=== PATIENT | female | born 1965 | race Caucasian/White ===

== ENCOUNTER 2020-08-30 21:08 | Observation (INO) | payer OTHER, SELFPAY ==
--- NOTE | ~2020-08-30 | CT_ITS ---
EXAMINATION: CT brain wo con INDICATION: Head injury COMPARISON: 09/27/2018 TECHNIQUE: Standard unenhanced head CT. The dose-length product (DLP) was 605.33 mGy-cm. The mA was a djusted according to patient size. Iterative reconstruction technique was employed. FINDINGS: There is no acute intraparenchymal hemorrhage. No evidence of mass lesion. No evidence of a cute infarction. There is mild periventricular and subcortical hypodensity probably related to small vessel ischemic disease. There is mild prominence of the sulci and ventricles related to cerebral atr ophy. Intracranial calcified cerebral atherosclerosis is noted. There are no extra-axial collections. There is no mass effect or midline shift. Changes in the globes are likely from ocular lens surgery. There is complete opacification of the visualized maxillary sinuses and partial opacification of th e ethmoidal air cells. The frontal sinuses are not pneumatized. IMPRESSION: 1. No acute intracranial abnormality. 2. Age related findings. Reviewed, dictated and finalized at location A. ANALYST
--- NOTE | ~2020-08-30 | XR_ITS ---
EXAMINATION: XR chest 1V portable INDICATION: Nausea and chest pain TECHNIQUE: Portable AP chest at 2301 hours COMPARISON: 09/27/2018 FINDINGS: The lungs are free of acute opacities. There is no pleural effusion or pneumothorax. The ca rdiomediastinal silhouette is normal. There is a partially imaged comminuted fracture of the proximal left humerus. Healed bilateral rib fractures are noted. IMPRESSION: 1. No acute cardiopulmonary abnormality. 2. Comminuted left proximal humerus fracture. Reviewed, dictated and finalized at location A. GE HAND
--- NOTE | ~2020-08-30 | XR_ITS ---
EXAMINATION: XR shoulder LT min 2V INDICATION: Left shoulder pain, initial encounter TECHNIQUE: Four views of the left shoulder are submitted. COMPARISON: None FINDINGS: There is a comminuted fracture involving the proximal shaft of the left humerus. The distal fracture fragment is overriding by approximately 1.5 cm. Glenohumeral and acromioclavicular alignmen t are normal. Soft tissue swelling surrounds the fracture. There are healed left rib fractures. IMPRESSION: 1. Comminuted fracture of the proximal shaft of the left humerus. Reviewed, dictated and finalized at location A. N RESOURCE ANALYST
--- NOTE | ~2020-08-30 | CT_ITS ---
EXAMINATION: CT cervical spine wo con DATE: 08/30/2020 21:46 INDICATION: Neck pain TECHNIQUE: Computed tomography (CT) of the cervical spine was performed without intravenous contrast. The dose-length product (DLP) was 107.81 mGy-cm. Automated exposure control and iterative reconstruc tion technique were employed. COMPARISON: 11/03/2009 FINDINGS: The vertebral body heights and alignment are normal. There is mild loss of intervertebral d isc space height throughout the cervical spine. No fracture is identified. The odontoid is intact. Sm all degenerative osteophytes project from the anterior endplates of multiple vertebral bodies. There is mild multilevel facet and uncovertebral joint osteoarthritis. IMPRESSION: 1. Mild cervical spondylosis without acute findings or significant interval change. Reviewed, dictated and finalized at location A. TENANCE SUPERVISOR MECHANICAL IMPRESSION: 1. Mild cervical spondylosis without acute findings or significant interval kacey nge.
[2020-08-30 21:09] VITALS: TEMP 36.7
--- NOTE | 2020-08-30 21:28 | ED.GENADULT ---
HPI - General Adult General Chief complaint: Alcohol Stated complaint: LEFT SHOULDER PAIN Time Seen by Provider: 08/30/20 21:11 Source: patient and old records reviewed Mode of arrival: ambulatory Limitations: no limitations History of Present Illness HPI narrative: Patient is a 54-year-old female who presents to emergency department for evaluation of left shoulder injury patient notes she was ambulating tripped and fell and injured the shoulder patient notes history of alcohol abuse. Patient presents for EMS noting left shoulder pain patient notes the pain is worse with any activity or manipulation of the shoulder. Patient on arrival with a GCS of 15 ANO x3. Patient denies other injuries or complaints. Patient has not taken anything for her symptoms. Pain is localized to the left shoulder. Patient notes that she likely fell while intoxicated this morning but does not recall the details of the incident Related Data Allergies Allergy/AdvReac Type Severity Reaction Status Date / Time strawberry AdvReac Intermediate RASH Verified 08/30/20 22:07 Review of Systems Review of Systems: All systems reviewed & are unremarkable except as noted in HPI and below PMFSH Past Medical History Medical History Alcohol abuse Social History Social History (Updated 08/30/20 @ 21:31 by Zackery Mcdonough PA-C) Smoking status: Current every day smoker Gender identity (if verbalized by the patient): Female Exam Narrative: Exam Narrative: GENERAL: Well-appearing, well-nourished, and in no acute distress. HEAD: Normocephalic, atraumatic. EYES: PERRLA and EOMI. ENT: Nares clear, no rhinorrhea or epistaxis. Mucous membranes moist. NECK: Supple. No adenopathy or masses. CHEST: Clear to auscultation. No respiratory distress. No wheezes rales or rhonchi HEART: Regular rate and rhythm. No murmur heard. Normal peripheral pulses. ABDOMEN: Soft, nontender, nondistended EXTREMITIES: Tenderness of the left rotator cuff musculature with swelling. No cervical thoracic or lumbar tenderness SKIN: Warm, dry, no rash. NEURO: No focal deficits. Alert and oriented x3. Neurovascularly intact. Capillary refill less than 2 seconds. Cranial nerves II through XII grossly intact PSYCH: Normal mood and affect. Course Consultations Consultation #1: Discussed case with orthopedic surgery who would like the patient to be placed in sling and to be placed in hospital for further evaluation of the injuries with likelihood for surgical repair n.p.o. at midnight. Dr. Stephens was the orthopedic surgeon consult Date: 08/30/20 Time: 22:36 Consultation #2: Spoke with Dr. Khoury who is agreed to accept the patient Date: 08/30/20 Time: 22:49 Vital Signs Vital signs: Vital Signs Temperature 98.0 F 08/30/20 21:09 Temperature 98.0 F 08/30/20 21:09 Pulse Rate 86 08/30/20 22:06 Respiratory Rate 20 08/30/20 22:06 Blood Pressure 115/99 H 08/30/20 22:06 Pulse Oximetry 100 08/30/20 22:06 Medical Decision Making MDM Narrative Medical decision making narrative: Patient with likely injury related to intoxication with fall resulting in proximal humerus fracture neurovascularly intact placed in sling with orthopedic consultation will be placed in hospital. Patient was given fluids and pain management in the emergency department ABCs intact and stable vital signs intact and stable Vital Signs Vital Signs: Vital Signs Temperature 98.0 F 08/30/20 21:09 Temperature 98.0 F 08/30/20 21:09 Pulse Rate 86 08/30/20 22:06 Respiratory Rate 20 08/30/20 22:06 Blood Pressure 115/99 H 08/30/20 22:06 Pulse Oximetry 100 08/30/20 22:06 Lab Data Result diagrams: 08/30/20 22:06 08/30/20 22:06 Labs: Lab Results 08/30/20 08/30/20 Range/Units 22:06 22:06 WBC 4.0 L (4.5-10.0) K/mm3 RBC 3.64 L (4.2-5.4) M/mm3 Hgb 11.0 L (12.0-15.0) g/dL Hct 36.7 L (37.0-47.0) % MCV 100.8 H (80-100)
--- NOTE | 2020-08-30 21:45 | PC.NURSE ---
pt. to ct
[2020-08-30] MEDS: THIAMINE HCL INJ 100 MG, FOLIC ACID INJ 1 MG, MULTIVITAMINS-12 INJ VIAL 1 5 ML, MULTIVI... 999 MG IV CONT (22:05)
[2020-08-30 22:06] VITALS: BP 115/99; PULSE 86; RESP 20; O2SAT 100
[2020-08-30 22:13] LABS: Basophils Percent Auto 0.5 % (0.2-1.2); Eosinophils Percent Auto 0.2 % (0-4.4); Hematocrit 36.7 % (37.0-47.0); Immature Granulocyte Absolute 0.02 K/mm3 (0.00-0.031); Immature Granulocyte Percent A 0.5 % (0-0.5); Lymphocytes Absolute Auto 0.87 K/mm3 (0.9-3.2); Lymphocytes Percent Auto 21.7 % (18.3-44.2); Mean Corpuscular Hemoglobin 30.2 pg (26-34); Mean Corpuscular Volume 100.8 fl (80-100); Mean Platelet Volume 8.7 fl (7.4-10.4); Monocytes Absolute Auto 0.3 K/mm3 (0.1-0.6); Monocytes Percent Auto 7.7 % (2.6-8.5); Neutrophils Absolute Auto 2.8 K/mm3 (1.3-6.7); Neutrophils Percent Auto 69.4 % (45.5-73.1); Platelet Count Result 244 k/mm3 (150-375); Red Blood Count 3.64 M/mm3 (4.2-5.4); Red Cell Distribution Width 18.1 % (11.5-14.5)
--- NOTE | 2020-08-30 22:47 | ECG_ITS ---
Measurements Intervals [place] Rate: 91 P: 99 MN: 132 QRS: 84 QRSD: 85 T: 84 QT: 413 QTc: 509 Interpretive Statements SINUS RHYTHM BASELINE ARTIFACT- I, II, AVR, AVL NORMAL ECG Electronically Signed On 08-31-2020 6:51:00 FORM TAMPING MACHINE OPERATOR by Ziggy العلي D.O.
[2020-08-30 22:52] VITALS: BP 119/77; PULSE 68; RESP 19; O2SAT 99
[2020-08-30 23:08] LABS: Alanine Aminotransferase 7 U/L (4-35); Albumin Level 2.8 g/dL (3.5-5.1); Alkaline Phosphatase 61 U/L (38-126); Anion Gap 10 mmol/L (8-16); Aspartate Amino Transferase 25 U/L (14-36); Bilirubin,Total < 0.1 mg/dL (0.2-1.3); Blood Urea Nitrogen 4 mg/dL (7-17); Calcium 7.4 mg/dL (8.4-10.2); Carbon Dioxide 20 mmol/L (22-30); Chloride 102 mmol/L (98-107); Estimated Glomerular Filt Rate > 60; Glucose 478 mg/dL (65-105); Potassium 3.2 mmol/L (3.4-5.0); Sodium 132 mmol/L (137-145)
[2020-08-30 23:22] LABS: INR 1.1; Prothrombin Time 14.7 Seconds (11.1-14.7)
[2020-08-30 23:23] LABS: Partial Thromboplastin Time 30.4 SECONDS (22.3-36.8)
[2020-08-30 23:30] LABS: Ethanol 225 mg/dL (<10)
[2020-08-30 23:41] LABS: Amphetamine Screen Urine Negative (Negative); Barbiturate Screen Urine Negative (Negative); Benzodiazepines Screen Urine Negative (Negative); Cannabinoid Screen Urine Negative (Negative); Cocaine Screen Urine Negative (Negative); Methadone Screen Urine Negative (Negative); Opiate Screen Urine Negative (Negative); Phencyclidine Screen Urine Negative (Negative)
[2020-08-31] VITALS (12 sets, daily range): BP systolic 98–125; BP diastolic 54–90; PULSE 78–105; RESP 14–18; TEMP 35.9–37.6; O2SAT 94–100; BMI 16.9
--- NOTE | 2020-08-31 00:25 | ADMGEN ---
This patient, India Sanders, was admitted to Medical Room 346-. Patient/family oriented to hospital policies and general routines including ID bracelet, bed and alarms, visiting hours, pain management, procedures, bathroom and other care routines, personal items, smoking policy, room service/diet, and visiting hours. Information on how to activate the Rapid Response Team has been discussed. Patient/Family are encouraged to report perceived risks to care and to ask questions if they do not understand what they are told or what they should do.
[2020-08-31] MEDS: LACTATED RINGERS 1,000 ML 125 ML IV CONT ×2 (00:28→14:49)
--- NOTE | 2020-08-31 01:53 | PM.IMHP ---
H&P: HPI History of Present Illness Date/Time: 08/31/20 01:53 Chief Complaint: Acute fall and left shoulder pain+ Narrative: This is a 54 year old female who is known to drink at least a six pack of beer daily who presented to the hospital with left shoulder pain this evening. She admits that she was intoxicated and believes she simply tripped going down the stairs and fell on her shoulder. She denies any head trauma or loss of consciousness. The patient denies any headache, fever, chills, nausea, vomiting, chest pain, shortness of breath, cough, abdominal pain, dysuria, hematuria, diarrhea, rectal bleeding or black stools. Shoulder x-ray demonstrated a comminuted fracture of the proximal shaft of the left humerus. The patient was placed in a sling. Ortho was consulted by ER provider and we have been asked to admit the patient to the hospital and they will evaluate her for her left arm fracture. She complains of mild arm pain on my encounter with her. She tells me that she is homeless and lives with friends. No other complaints at this time. Review of Systems Review of Systems: All systems reviewed & are unremarkable except as noted in HPI and below PMFSH Past Medical History Medical History Alcohol abuse Family History Family History Father Alcohol abuse Mother Alcohol abuse Social History Social History Smoking packs per day: 1 Smoking cigarettes per day: 20.0 Smoking status: Current every day smoker Tobacco type: cigarettes Alcohol intake: current Drinks per week: 42 Substance use: never Living arrangements: homeless Gender identity (if verbalized by the patient): Female Spiritual care concerns: No Meds Home Medications and Allergies Home Medications Medication Instructions Recorded Confirmed Type No Home Medications 08/31/20 08/31/20 History Allergies Allergy/AdvReac Type Severity Reaction Status Date / Time strawberry AdvReac Intermediate RASH Verified 08/31/20 00:53 Vital Signs Vital Signs - 24 hr 08/30/20 21:09 08/30/20 22:06 08/30/20 22:52 Temperature 36.7 C Pulse Rate 86 68 Respiratory Rate 20 19 Blood Pressure 115/99 H 119/77 Pulse Oximetry 100 99 08/31/20 00:08 08/31/20 00:46 Temperature 36.4 C Pulse Rate 78 89 Respiratory Rate 14 16 Blood Pressure 107/74 98/68 L Pulse Oximetry 97 100 Exam Const: General: cooperative, alert and awake Nutritional Appearance: thin and underweight Orientation/consciousness: patient oriented x3 HENMT: Head: normal to inspection General nose exam: Normal external nose present Face and sinus: normal facial exam Mouth: Yes Normal oral and palatal mucosa present and Yes oropharynx normal Eyes: Pupils: Equal, round and reactive pupils present EOM: EOMs intact bilaterally Neck: Neck: supple and no JVD Thyroid: thyroid normal Lymphatic: lymphadenopathy not noted Resp: Effort & Inspection: normal respiratory effort Auscultation: clear to auscultation bilaterally Cardio: Rate: regular rate Rhythm: regular rhythm Heart sounds: no murmurs GI: Inspection: normal to inspection Auscultation: normal bowel sounds Skin: General skin exam: normal color and no rashes or lesions noted Neuro: General: patient oriented x3 Cranial nerves: Yes CN's II-XII intact bilaterally and Yes Equal, round and reactive pupils present Speech: normal speech Motor exam (neuro): 5/5 motor strength present throughout Sensory Exam: normal sensation Extrem: General: normal to inspection and no edema Left upper extremity: shoulder/upper arm (Pain w/ palpation of shoulder and upper arm++ ) Other: Left arm in sling+ Psych: Mental Status: mental status grossly normal Affect: normal affect H&P: Results Labs Labs: Short CBC 08/30/20 Range/Units 22:06 WBC 4.0 L (4.5-10.0) K/mm3 Hgb 11.0 L (1
[2020-08-31 02:13] LABS: Glucose Point of Care 70 (65-105)
[2020-08-31 02:13] LABS: Glucose Point of Care 71 (65-105)
[2020-08-31 02:14] LABS: Glucose Point of Care 66 (65-105)
[2020-08-31] MEDS: MORPHINE SULFATE (*CRX) 4 MG/ML INJ IV PUSH ×2 (02:35→08:25)
[2020-08-31 03:36] LABS: Glucose Point of Care 163 (65-105)
--- NOTE | 2020-08-31 05:29 | PC.NURSE ---
Addendum entered by Domonique Huang RN 08/31/20 05:29: Patient's pocket knives locked in the cabinet in pt's room. Original Note: Patient's pocket knives locked in cabinent
[2020-08-31 05:31] LABS: Glucose Point of Care 88 (65-105)
[2020-08-31 05:59] LABS: Basophils Percent Auto 0.5 % (0.2-1.2); Eosinophils Absolute Auto 0.1 K/mm3 (0-0.3); Eosinophils Percent Auto 0.9 % (0-4.4); Hematocrit 26.5 % (37.0-47.0); Hemoglobin 8.5 g/dL (12.0-15.0); Immature Granulocyte Absolute 0.03 K/mm3 (0.00-0.031); Immature Granulocyte Percent A 0.5 % (0-0.5); Lymphocytes Absolute Auto 1.53 K/mm3 (0.9-3.2); Lymphocytes Percent Auto 26.7 % (18.3-44.2); Mean Corpuscular HGB Conc 32.1 g/dl (32-36); Mean Corpuscular Hemoglobin 29.5 pg (26-34); Mean Platelet Volume 8.3 fl (7.4-10.4); Monocytes Absolute Auto 0.6 K/mm3 (0.1-0.6); Monocytes Percent Auto 10.5 % (2.6-8.5); Neutrophils Absolute Auto 3.5 K/mm3 (1.3-6.7); Neutrophils Percent Auto 60.9 % (45.5-73.1); Platelet Count Result 249 k/mm3 (150-375); Red Blood Count 2.88 M/mm3 (4.2-5.4); Red Cell Distribution Width 17.1 % (11.5-14.5); White Blood Count 5.7 K/mm3 (4.5-10.0)
[2020-08-31 06:07] LABS: Hemoglobin A1C 4.8 % (<5.7)
[2020-08-31 06:16] LABS: Alanine Aminotransferase 8 U/L (4-35); Albumin Level 3.2 g/dL (3.5-5.1); Alkaline Phosphatase 61 U/L (38-126); Anion Gap 8 mmol/L (8-16); Aspartate Amino Transferase 31 U/L (14-36); Bilirubin,Total 0.3 mg/dL (0.2-1.3); Blood Urea Nitrogen 3 mg/dL (7-17); Calcium 8.3 mg/dL (8.4-10.2); Carbon Dioxide 24 mmol/L (22-30); Chloride 104 mmol/L (98-107); Estimated CRCL calculation 85 ml/min; Estimated Glomerular Filt Rate > 60; Glucose 81 mg/dL (65-105); Potassium 3.7 mmol/L (3.4-5.0); Sodium 136 mmol/L (137-145)
--- NOTE | 2020-08-31 07:18 | PM.CNOR ---
Assessment and Plan Assessment and plan (1) Closed left humeral fracture: Qualifiers: Encounter type: initial encounter Fracture alignment: displaced Fracture morphology: other fracture Humerus Location: proximal Qualified Code(s): S42.292A - Other displaced fracture of upper end of left humerus, initial encounter for closed fracture Code(s): S42.302A - Unspecified fracture of shaft of humerus, left arm, initial encounter for closed fracture Status: Acute Assessment and Plan: New patient evaluation for chief complaint left shoulder fracture. History, physical exam and radiographs reviewed with the patient. Discussed the condition, nature, etiology and course of natural history with the patient. Treatment options including surgical and nonoperative treatment were reviewed. Risks and benefits of each as well as alternatives reviewed. The patient's questions were answered. Conservative treatment ice and sling. Discussion of surgical treatment and outcomes with non operative treatment in detail with the patient. She has declined surgical treatment at this time. We will continue to follow to allow for any further discussion or questions before deciding on definitive treatment. Sling immobilization for now. History of Present Illness HPI Consult date: 08/31/20 Requesting physician: Zackery Mcdonough PA-C Consult reason: fracture Chief complaint: closed left shoulder fracture, etoh abuse Narrative: 54-year-old woman with history of alcohol use admitted through the emergency room last night for left proximal humerus fracture. Patient states she fell yesterday. Complains of pain left shoulder and headache. Denies numbness or tingling. Denies head or neck injury. Patient is right-hand dominant. She states she has had previous right arm and feet fractures as well as a back fracture. Review of Systems Constitutional: Constitutional: Denies fever(s) Eyes: Eyes: Denies blurry vision ENT: Reports Normal hearing present Cardiovascular: Cardiovascular: Denies chest pain and Denies dyspnea Respiratory: Respiratory: Denies dyspnea and Denies wheezing Gastrointestinal: Gastrointestinal: Denies abdominal pain Genitourinary: Genitourinary: Denies urinary urgency Musculoskeletal: Musculoskeletal: Reports as per HPI and Denies numbness Integumentary/Breasts: Skin/Breast: Denies changing lesions and Denies sores Neurologic: Reports Normal hearing present, Denies behavioral changes, Denies confusion, Denies numbness and Denies convulsions Psychiatric: Psychiatric: Denies behavioral changes, Denies confusion and Denies hallucinations Endocrine: Endocrine: Denies heat intolerance Hematologic/Lymphatic: Hematologic/Lymphatic: Denies easy bleeding Allergic/Immunologic: Allergic/Immunologic: Denies wheezing PMFSH Past Medical History Medical History Alcohol abuse Family History Family History Father Alcohol abuse Mother Alcohol abuse Social History Social History Smoking packs per day: 1 Smoking cigarettes per day: 20.0 Smoking status: Current every day smoker Tobacco type: cigarettes Alcohol intake: current Drinks per week: 42 Substance use: never Living arrangements: homeless Gender identity (if verbalized by the patient): Female Spiritual care concerns: No Meds Home Medications and Allergies Home Medications Medication Instructions Recorded Confirmed Type No Home Medications 08/31/20 08/31/20 History Allergies Allergy/AdvReac Type Severity Reaction Status Date / Time strawberry AdvReac Intermediate RASH Verified 08/31/20 00:53 Vital Signs Vital Signs - 24 hr 08/30/20 21:09 08/30/20 22:06 08/30/20 22:52 Temperature 98.0 F Pulse Rate 86 68 Respiratory Rate 20 19 Blood Pressure 115/99 H 119/77 Pulse Oximetry 100 9
[2020-08-31] MEDS: FAMOTIDINE 20 MG/2 ML VIAL IV PUSH ×2 (08:21→20:45)
[2020-08-31] MEDS: THIAMINE HCL 200 MG/2 ML VIAL 100 MG IV PUSH (08:22)
[2020-08-31 10:56] LABS: Vitamin D 25 Hydroxy 29.1 ng/mL
--- NOTE | 2020-08-31 14:24 | PC.NURSE ---
Supervised patient care and reviewed documentation by [facility] student nurse Sheial Vang
--- NOTE | 2020-08-31 15:39 | PM.IMPN ---
Progress Note: A&P Assessment and Plan (1) Closed left humeral fracture: Qualifiers: Encounter type: initial encounter Fracture alignment: displaced Fracture morphology: other fracture Humerus Location: proximal Qualified Code(s): S42.292A - Other displaced fracture of upper end of left humerus, initial encounter for closed fracture Code(s): S42.302A - Unspecified fracture of shaft of humerus, left arm, initial encounter for closed fracture Status: Acute Assessment and Plan: Patient had a mechanical fall down a set of stairs while intoxicated and fell onto her left shoulder with immediate pain. Shoulder x-ray demonstrated a comminuted fracture of the proximal shaft of the left humerus. Her pain is currently 6/10. Calcium levels sufficient when corrected for hypoalbuminemia. Vitamin D levels are insufficient. Orthopedic surgery has been consulted and input is appreciated. Continue sling. Conservative vs surgical management being considered. Analgesics available as needed for pain Supplement vitamin-D (2) Alcohol abuse: Code(s): F10.10 - Alcohol abuse, uncomplicated Status: Acute Assessment and Plan: She reports drinking at least one 6 pack of beer per day. She was intoxicated upon arrival with alcohol level of 225. She denies history of alcohol withdrawal symptoms. CIWA scores have been <2. Continue with CIWA protocol. Ativan available as needed for CIWA >8. Thiamine and folic acid supplementation Alcohol cessation has been encouraged (3) Abnormal glucose: Code(s): R73.09 - Other abnormal glucose Status: Acute Assessment and Plan: She had an elevated random glucose of 163. A1c is 4.8. Accu-Cheks discontinued. Monitor glucose on a.m. BMP (4) Anemia: Qualifiers: Anemia type: unspecified type Qualified Code(s): D64.9 - Anemia, unspecified Code(s): D64.9 - Anemia, unspecified Status: Acute Assessment and Plan: Macrocytic, likely secondary to chronic alcohol abuse. She has had a decline in H&H today compared to presentation, which is likely dilutional given aggressive IV fluid rehydration. Vital signs are stable and she has no evidence of active bleeding. Monitor H&H closely and transfuse as needed with hemoglobin threshold <7.0 Check iron panel, B12, and folate IV fluids will be discontinued as she is tolerating oral intake. (5) Hypokalemia: Code(s): E87.6 - Hypokalemia Status: Acute Assessment and Plan: Potassium low upon presentation and improved with supplementation. Potassium 3.7 today. Monitor serum potassium and replace as needed (6) Tobacco dependence: Code(s): F17.200 - Nicotine dependence, unspecified, uncomplicated Status: Chronic Assessment and Plan: She reports smoking approximately 1 pack per day. She declines need for nicotine patch at this time. She has been educated on smoking cessation and will continue to encourage (7) Homelessness: Code(s): Z59.0 - Homelessness Status: Chronic Assessment and Plan: She stays with various friends. She reports she always has a safe place to stay. Care coordination has been consulted and input is appreciated. Resources will be provided. Subjective Date/time seen: 08/31/20 15:39 Interval history: Date of service: 08/31/2020 India Sanders is a 54-year-old homeless female with a history of alcohol abuse and tobacco abuse who is seen in follow-up for humerus fracture secondary to fall. She reports that she is doing fairly well today. Her pain is currently a 6/10 in the left shoulder. Otherwise, she has no concerns. She has been eating and drinking well. She has a Keenan catheter and has no issues related to this. She denies abdominal pain, nausea, vomiting, fever, chills, or sweats. She denies dizziness, lightheadedness, weakness. Denies anxiety, res
[2020-09-01 05:52] LABS: Hematocrit 29.7 % (37.0-47.0); Hemoglobin 9.5 g/dL (12.0-15.0); Mean Corpuscular Hemoglobin 29.9 pg (26-34); Mean Corpuscular Volume 93.4 fl (80-100); Mean Platelet Volume 8.3 fl (7.4-10.4); Platelet Count Result 264 k/mm3 (150-375); Red Blood Count 3.18 M/mm3 (4.2-5.4); Red Cell Distribution Width 17.3 % (11.5-14.5); White Blood Count 5.5 K/mm3 (4.5-10.0)
[2020-09-01 06:00] VITALS: BP 129/74; PULSE 98; RESP 16; TEMP 36.4; O2SAT 95
[2020-09-01 06:05] LABS: Anion Gap 5 mmol/L (8-16); Blood Urea Nitrogen 4 mg/dL (7-17); Calcium 8.4 mg/dL (8.4-10.2); Carbon Dioxide 28 mmol/L (22-30); Chloride 103 mmol/L (98-107); Estimated CRCL calculation 70 ml/min; Estimated Glomerular Filt Rate > 60; Glucose 101 mg/dL (65-105); Magnesium 1.5 mg/dL (1.6-2.3); Potassium 3.8 mmol/L (3.4-5.0); Sodium 136 mmol/L (137-145)
--- NOTE | 2020-09-01 08:07 | PM.PNORT ---
Progress Note: A&P Assessment and Plan (1) Closed left humeral fracture: Qualifiers: Encounter type: subsequent encounter Fracture alignment: displaced Fracture morphology: other fracture Humerus Location: proximal Fracture healing: with routine healing Qualified Code(s): S42.292D - Other displaced fracture of upper end of left humerus, subsequent encounter for fracture with routine healing Code(s): S42.302A - Unspecified fracture of shaft of humerus, left arm, initial encounter for closed fracture Status: Acute Assessment and Plan: Left proximal humerus fracture. Patient comfortable when not trying to move too much. She has still declined surgical treatment. We discussed the long-term risks with malunion, nonunion and dysfunction the arm and shoulder. Her questions were answered. She verbalized understanding and continues to declined surgery and wants to proceed with non operative treatment. Recommend sling when up. Fracture precautions for the left shoulder and arm. May follow up in orthopedic office approximately 3 weeks. Subjective Subjective Date/Time Seen: 09/01/20 08:07 Patient appears comfortable. No new complaints. Left shoulder pain with movement. Exam Const: General: No healthy appearing, in distress or confusion Orientation/consciousness: oriented to person, oriented to place, oriented to time and No confusion HENMT: Head: normal to inspection, normocephalic and atraumatic Eyes: Conjunctivae: conjunctivae normal Sclera: sclerae normal Neck: Neck: supple and nontender Resp: Effort & Inspection: normal respiratory effort and no audible wheezes Cardio: Rate: regular rate Rhythm: regular rhythm Skin: General skin exam: no rashes or lesions noted Neuro: General: oriented to person, oriented to place, oriented to time and No confusion Extrem: Right upper extremity: shoulder/upper arm axillary nerve sensory function normal, normal ROM (FF 130, Abd 120, ER 70, IR T7) and other (RC 5/5, Bicep 5/5, Deltoid 5/5, ER 5/5); no tenderness and no swelling, elbow/forearm normal ROM; no tenderness and no swelling, wrist normal ROM and radial pulse present; no tenderness and Extremity exam: right hand neuromotor exam normal wrist extension normal, thumb opposition normal, thumb IP flexion normal and fingers 2-5 ABduction normal, neurosensory exam normal radial nerve sensory function normal, ulnar nerve sensory function normal, median nerve sensory function normal and digital nerve sensory function normal and vascular exam radial pulse present and normal capillary refill; no tenderness, no swelling and no crepitus Left upper extremity: normal to inspection, shoulder/upper arm inspection abnormal, tenderness of the A-C joint, of the proximal humerus, over the subacromial bursa and other (anterolateral acromion, gh joint), swelling ( Moderate shoulder) of the proximal humerus anterolaterally and of the shoulder joint, axillary nerve sensory function normal, abnormal ROM pain with active ROM in ABduction and in internal rotation, pain with passive ROM in internal rotation and external rotation- and with range as follows (FF 0, Abd 0, ER 10, IR stomach) and other (RC 4/5, Bicep 4/5, Deltoid 5-/5, ER 4/5), elbow/forearm normal ROM; no tenderness and no swelling, wrist normal ROM and radial pulse present; no tenderness and hand neuromotor exam normal Details: wrist extension normal and thumb IP flexion normal, neurosensory exam normal Details: radial nerve sensory function normal, ulnar nerve sensory function normal and median nerve sensory function normal, tendon exam normal Location: of all digits and vascular exam normal capillary refill; no tenderness Right lower extremity: normal to inspection Left lower extremity: normal to inspection Psych: Affect: normal affect Objective Data Vital Signs Vital Signs: Vital Signs - 24 hr 08/31/20 09:44 08/31/20 12:00 08/31/20 14:26 Temperature 97.0 F L Puls
[2020-09-01 08:35] VITALS: BP 129/74
[2020-09-01] MEDS: THIAMINE HCL 100 MG TABLET PO (08:39)
[2020-09-01] MEDS: CHOLECALCIFEROL 400 UNITS TABLET (VIT D) PO (08:39)
[2020-09-01] MEDS: FOLIC ACID 1 MG TABLET PO (08:39)
[2020-09-01] MEDS: FAMOTIDINE 20 MG/2 ML VIAL IV PUSH ×2 (08:39→20:42)
[2020-09-01 14:00] VITALS: BP 117/67; PULSE 100; RESP 16; TEMP 36.8; O2SAT 96
[2020-09-01] MEDS: MAGNESIUM SULF 2 GM/WATER 50ML 2 GM/50 ML BAG IVPB (14:49)
--- NOTE | 2020-09-01 15:29 | PM.IMPN ---
Progress Note: A&P Assessment and Plan (1) Closed left humeral fracture: Qualifiers: Encounter type: subsequent encounter Fracture alignment: displaced Fracture healing: with routine healing Fracture morphology: other fracture Humerus Location: proximal Qualified Code(s): S42.292D - Other displaced fracture of upper end of left humerus, subsequent encounter for fracture with routine healing Code(s): S42.302A - Unspecified fracture of shaft of humerus, left arm, initial encounter for closed fracture Status: Acute Assessment and Plan: Patient had a mechanical fall down a set of stairs while intoxicated and fell onto her left shoulder with immediate pain. Shoulder x-ray demonstrated a comminuted fracture of the proximal shaft of the left humerus. Calcium levels sufficient. Vitamin D levels are insufficient. Pain is well controlled. She previously noted that she wanted to proceed with conservative, however has reconsidered and would like to discuss having surgery. Orthopedic surgery has been consulted and input is appreciated. Dr. Stephens aware of patient's wishes to reconsider surgery Continue sling. Analgesics available as needed for pain Supplement vitamin-D. Continue sanchez catheter until final decision is made regarding surgery to avoid re-insertion if proceeding with surgery. Discontinue post-operatively or if no surgical management planned. (2) Alcohol abuse: Code(s): F10.10 - Alcohol abuse, uncomplicated Status: Acute Assessment and Plan: She reports drinking at least one 6 pack of beer per day. She was intoxicated upon arrival with alcohol level of 225. She denies history of alcohol withdrawal symptoms. CIWA scores have been <2. Continue with CIWA protocol. Ativan available as needed for CIWA >8. Thiamine and folic acid supplementation Alcohol cessation has been encouraged (3) Abnormal glucose: Code(s): R73.09 - Other abnormal glucose Status: Acute Assessment and Plan: She had an elevated random glucose of 478 on 08/30/20. A1c is 4.8. Fasting glucose this morning was 101. Accu-Cheks discontinued. Monitor glucose on a.m. BMP (4) Anemia: Qualifiers: Anemia type: unspecified type Qualified Code(s): D64.9 - Anemia, unspecified Code(s): D64.9 - Anemia, unspecified Status: Acute Assessment and Plan: Macrocytic, likely secondary to chronic alcohol abuse. She had a decline in H&H today compared to presentation, which is likely dilutional given IV fluid rehydration, which has since been discontinued. Vital signs are stable and she has no evidence of active bleeding. H&H stabilized. Monitor H&H closely and transfuse as needed with hemoglobin threshold <7.0 Check iron panel, B12, and folate (5) Hypokalemia: Code(s): E87.6 - Hypokalemia Status: Acute Assessment and Plan: Potassium low upon presentation and improved with supplementation. Potassium 3.8 today. Monitor serum potassium and replace as needed (6) Tobacco dependence: Code(s): F17.200 - Nicotine dependence, unspecified, uncomplicated Status: Chronic Assessment and Plan: She reports smoking approximately 1 pack per day. She declines need for nicotine patch at this time. I educated her on smoking cessation for 5 minutes. She expresses interest on wanting to cut down smoking. (7) Homelessness: Code(s): Z59.0 - Homelessness Status: Chronic Assessment and Plan: She stays with various friends. She reports she always has a safe place to stay. Care coordination has been consulted and input is appreciated. Resources will be provided. Subjective Date/time seen: 09/01/20 15:29 Interval history: Date of service: 09/01/2020 India Sanders is a 54-year-old homeless female with a history of alcohol abuse and tobacco abuse who is seen in follow-up for humerus fra
[2020-09-01 20:42] VITALS: BP 128/74; PULSE 107; RESP 18; TEMP 37.1; O2SAT 97
[2020-09-01] MEDS: HYDROcodone/acetaminophen (*CRX) 5-325 MG TABLET 1 TAB PO (20:43)
[2020-09-02 04:51] VITALS: BP 103/68; PULSE 102; RESP 18; TEMP 36.6; O2SAT 95
[2020-09-02 06:01] LABS: Hematocrit 30.5 % (37.0-47.0); Hemoglobin 9.6 g/dL (12.0-15.0)
[2020-09-02 06:17] LABS: Anion Gap 5 mmol/L (8-16); Blood Urea Nitrogen 6 mg/dL (7-17); Calcium 8.7 mg/dL (8.4-10.2); Carbon Dioxide 26 mmol/L (22-30); Chloride 102 mmol/L (98-107); Estimated CRCL calculation 70 ml/min; Estimated Glomerular Filt Rate > 60; Glucose 101 mg/dL (65-105); Sodium 133 mmol/L (137-145)
[2020-09-02 06:28] LABS: Iron 50 ug/dL (37-170)
[2020-09-02 06:38] LABS: Percent Iron Saturation 12 % (20-50)
[2020-09-02 06:55] LABS: Potassium 3.6 mmol/L (3.4-5.0)
[2020-09-02 07:19] LABS: Folic Acid 11.2 ng/mL (2.76->20)
[2020-09-02] MEDS: CHOLECALCIFEROL 400 UNITS TABLET (VIT D) PO (08:23)
[2020-09-02] MEDS: FOLIC ACID 1 MG TABLET PO (08:23)
[2020-09-02] MEDS: THIAMINE HCL 100 MG TABLET PO (08:23)
[2020-09-02] MEDS: FAMOTIDINE 20 MG/2 ML VIAL IV PUSH (08:23)
--- NOTE | 2020-09-02 14:14 | PC.NURSE ---
This patient requesting to leave A. BERTHA Singh and Charlotte Kaiser notified of this. Gave patient contact information for Dr. June office.
--- NOTE | 2020-09-02 16:35 | PM.DS ---
DS: Admitting Diagnosis Admitting Diagnosis Admitting Diagnosis: Left shoulder fracture DS: Discharge Diagnosis Discharge Diagnosis (1) Closed left humeral fracture: Qualifiers: Encounter type: subsequent encounter Fracture alignment: displaced Fracture healing: with routine healing Fracture morphology: other fracture Humerus Location: proximal Qualified Code(s): S42.292D - Other displaced fracture of upper end of left humerus, subsequent encounter for fracture with routine healing Code(s): S42.302A - Unspecified fracture of shaft of humerus, left arm, initial encounter for closed fracture Status: Acute Assessment and Plan: Patient had a mechanical fall down a set of stairs while intoxicated and fell onto her left shoulder with immediate pain. Shoulder x-ray demonstrated a comminuted fracture of the proximal shaft of the left humerus. Calcium levels sufficient. Vitamin D levels insufficient and she was started on vitamin D supplementation. Pain was well controlled. She initially opted to proceed with conservative management but then later wished to reconsider surgery. She was followed by orthopedic surgeon Dr. Stephens. She left AMA prior to determining if she would be a candidate for surgery. She will continue using her sling and should follow up with Dr. Stephens in 2-3 weeks. (2) Alcohol abuse: Code(s): F10.10 - Alcohol abuse, uncomplicated Status: Acute Assessment and Plan: She reports drinking at least one 6 pack of beer per day. She was intoxicated upon arrival with alcohol level of 225. She denies history of alcohol withdrawal symptoms. CIWA scores were <2 and she did not demonstrate any withdrawal symptoms. Thiamine and folic acid supplementation initiated. Alcohol cessation was encouraged (3) Abnormal glucose: Code(s): R73.09 - Other abnormal glucose Status: Acute Assessment and Plan: She had an elevated random glucose of 478 on 08/30/20. A1c is 4.8. Subsequent fasting glucose on BMP were well controlled. (4) Anemia: Qualifiers: Anemia type: unspecified type Qualified Code(s): D64.9 - Anemia, unspecified Code(s): D64.9 - Anemia, unspecified Status: Acute Assessment and Plan: Macrocytic, likely secondary to chronic alcohol abuse. She had a decline in H&H compared to presentation, which was felt to be dilutional given IV fluid rehydration. Vital signs were stable and she had no evidence of active bleeding. H&H remained stable. Iron stores, B12, and folate sufficient. (5) Hypokalemia: Code(s): E87.6 - Hypokalemia Status: Acute Assessment and Plan: Potassium low upon presentation and improved with supplementation. Potassium 3.6 at time of discharge. (6) Tobacco dependence: Code(s): F17.200 - Nicotine dependence, unspecified, uncomplicated Status: Chronic Assessment and Plan: She reports smoking approximately 1 pack per day. She declined nicotine patch during her stay. I educated her on smoking cessation for 5 minutes. She initially expressed interest on wanting to cut down smoking, however, on 09/02/20 she became agitated that she was not allowed to leave the hospital to smoke, and therefore signed out AMA rather abruptly. (7) Homelessness: Code(s): Z59.0 - Homelessness Status: Chronic Assessment and Plan: She stays with various friends. She reports she always has a safe place to stay. Care coordination followed patient she declined any continued needs. DS: Summary Hospital Course Reason for hospitalization: Left shoulder fracture Hospital Course: date of admission: 08/30/2020 date of departure: 09/02/2020 India Sanders is a 54-year-old homeless female with a history of alcohol abuse and tobacco abuse who presented to the emergency department on 08/30/2020 after a fall at home. She was intoxicated and tripped on a set of stairs and
== END 2020-09-02 14:00 | disposition left against medical advice (07) ==
LOC: ANHED 22:50 → ANH3MED 08-31 01:12
PROVIDERS: Emergency Medicine Emergency Medical Services; Admitting Provider Family Medicine; Emergency Provider Emergency Medicine; Visit Provider Physician Assistant
DX: S42.352A Displaced comminuted fracture of shaft of humerus, left arm, initial encounter for closed fracture (principal); W10.9XXA Fall (on) (from) unspecified stairs and steps, initial encounter; F10.120 Alcohol abuse with intoxication, uncomplicated; R73.09 Other abnormal glucose; D64.9 Anemia, unspecified; E87.6 Hypokalemia; F17.210 Nicotine dependence, cigarettes, uncomplicated; Z59.0 Homelessness
CPT/HCPCS: 36415; 70450; 71045; 72125; 73030; 80048; 80053; 80307; 82306; 82607; 82728; 82746; 82948; 83036; 83540; 83550; 83735; 85014; 85018; 85025; 85027; 85610; 85730; 93005; 96361; 96365; 96374; 96375; 96376; 99285; A4565; A9270; G0378; G0379; J0131; J2270; J3411; J3475; J3480; J7060; J7120; J7121

== ENCOUNTER 2021-09-01 22:09 | Emergency (ER) | payer OTHER, SELFPAY ==
[2021-09-01] VITALS (15 sets, daily range): BP systolic 94–131; BP diastolic 64–87; PULSE 70–87; RESP 15–22; TEMP 36.6; O2SAT 94–100
--- NOTE | ~2021-09-01 | XR_ITS ---
EXAMINATION: XR chest 2V 09/01/2021 23:48 INDICATION: Shortness of breath PROCEDURE: 2 view chest COMPARISON: 08/30/2020 FINDINGS: The lungs are clear. The cardiomediastinal silhouette is within normal limits. There are no pleural effusions. There is no pneumothorax suspected. There are multiple healed bilateral rib f ractures. There are healed bilateral proximal humeral fractures. IMPRESSION: 1: NO ACUTE CARDIOPULMONARY DISEASE. Reviewed, dictated and finalized at location A. [employer] APPRENTICE
--- NOTE | 2021-09-01 22:16 | ECG_ITS ---
Measurements Intervals [place] Rate: 77 P: 83 VA: 144 QRS: 80 QRSD: 80 T: 70 QT: 403 QTc: 457 Interpretive Statements SINUS RHYTHM POSSIBLE LEFT ATRIAL ENLARGEMENT [-0.1mV P-WAVE IN V1/V2] POSSIBLE RIGHT VENTRICULAR CONDUCTION DELAY [RSR (QR) IN V1/V2] BORDERLINE ECG COMPARED TO ECG 08/30/2020 23:24:41 NO SIGNIFICANT CHANGES Electronically Signed On 09-02-2021 10:32:12 [employer]GET AND [employer]ICY ANALYST by Brian Brown M.D.
[2021-09-01 22:35] LABS: Basophils Percent Auto 0.3 % (0.2-1.2); Eosinophils Absolute Auto 0.1 K/mm3 (0-0.3); Hematocrit 34.7 % (37.0-47.0); Hemoglobin 11.6 g/dL (12.0-15.0); Immature Granulocyte Absolute 0.02 K/mm3 (0.00-0.031); Immature Granulocyte Percent A 0.3 % (0-0.5); Lymphocytes Absolute Auto 4.05 K/mm3 (0.9-3.2); Lymphocytes Percent Auto 66.7 % (18.3-44.2); Mean Corpuscular HGB Conc 33.4 g/dl (32-36); Mean Corpuscular Hemoglobin 34.2 pg (26-34); Mean Corpuscular Volume 102.4 fl (80-100); Mean Platelet Volume 8.6 fl (7.4-10.4); Monocytes Absolute Auto 0.6 K/mm3 (0.1-0.6); Monocytes Percent Auto 9.7 % (2.6-8.5); Neutrophils Absolute Auto 1.3 K/mm3 (1.3-6.7); Platelet Count Result 224 k/mm3 (150-375); Red Blood Count 3.39 M/mm3 (4.2-5.4); Red Cell Distribution Width 15.2 % (11.5-14.5); White Blood Count 6.1 K/mm3 (4.5-10.0)
[2021-09-01] MEDS: ALBUTEROL SULFATE NEB 2.5 MG/0.5 ML INH 5 MG INHALATION (22:41)
[2021-09-01] MEDS: IPRATROPIUM BR 0.02% INH SOLN 0.5 MG/2.5 ML VIAL INHALATION (22:41)
[2021-09-01 22:46] LABS: Anion Gap 9 mmol/L (8-16); Blood Urea Nitrogen 5 mg/dL (7-17); Calcium 8.2 mg/dL (8.4-10.2); Carbon Dioxide 23 mmol/L (22-30); Chloride 101 mmol/L (98-107); Estimated Glomerular Filt Rate > 60; Glucose 92 mg/dL (65-110); Lactic Acid Reflex 1.6 mmol/L (0.7-2.1); Potassium 3.4 mmol/L (3.4-5.0); Sodium 133 mmol/L (137-145)
--- NOTE | 2021-09-01 22:57 | PC.NURSE ---
per RT, patient received a breathing treatment and after treatment was finished she was apneic for approx 20 seconds. RT did sternal rub and patient awoke. Dr. Rasheed aware
[2021-09-01 23:00] LABS: Platelet Estimate Adequate (Adequate)
[2021-09-01 23:01] LABS: Macrocytosis 1+ (NORMAL)
[2021-09-02] VITALS (8 sets, daily range): BP systolic 119–123; BP diastolic 73–96; PULSE 69; RESP 18–20; TEMP 36.4; O2SAT 95–98
--- NOTE | 2021-09-02 00:32 | ED.SOB ---
HPI - SOB/Dyspnea General Chief Complaint: Shortness of Breath/Dyspnea Stated Complaint: SOB/AMS Time Seen by Provider: 09/01/21 22:10 History of Present Illness HPI Narrative: Patient is a 55-year-old female who presents ER with shortness of breath. Ongoing for couple of days. Has history of smoking. Unsure if she has history of COPD. No fevers or chills or sweats. She has been having some cough and congestion. No loss of taste or smell. No known sick contacts. Related Data Allergies Allergy/AdvReac Type Severity Reaction Status Date / Time strawberry AdvReac Intermediate RASH Verified 08/31/20 00:53 Review of Systems Review of Systems: All systems reviewed & are unremarkable except as noted in HPI and below Constitutional: Constitutional: Denies chills, Denies fever(s) and Denies weakness ENT: Reports nasal congestion and Denies sore throat Cardiovascular: Cardiovascular: Denies chest pain, Denies rapid heart rate and Denies radiating jaw, neck or arm pain Respiratory: Respiratory: Reports cough, Reports dyspnea and Reports wheezing Gastrointestinal: Gastrointestinal: Denies abdominal pain, Denies nausea and Denies vomiting Neurologic: Denies dizziness, Denies focal weakness and Denies numbness PMFSH Past Medical History Medical History (Updated 09/02/21 @ 00:43 by Ran Rasheed MD) Alcohol abuse Pancreatitis Surgical History Surgical History (Updated 09/02/21 @ 00:34 by Ran Rasheed MD) History of hysterectomy Family History Family History Father Alcohol abuse Mother Alcohol abuse Social History Social History Smoking packs per day: 1 Smoking cigarettes per day: 20.0 Smoking status: Current every day smoker Tobacco type: cigarettes Alcohol intake: current Drinks per week: 42 Substance use: never Gender identity (if verbalized by the patient): Female Spiritual care concerns: No Exam Narrative: GENERAL: Chronically ill-appearing, well-nourished, and anxious. HEAD: Normocephalic, atraumatic. ENT: Mucous membranes moist. CHEST: Coarse rales right midlung zone. Increased respiratory rate. HEART: Regular rate and rhythm. Normal peripheral pulses. EXTREMITIES: Normal range of motion. No edema. SKIN: Warm, dry, no rash. NEURO: Alert and oriented x3. PSYCH: Normal mood and affect. Course Course Emergency Course: Lungs clear to auscultation after nebulizer treatment. Ambulatory without hypoxia. Discharge home. Vital Signs Vital signs: Vital Signs Temperature 97.8 F 09/01/21 22:08 Pulse Rate 85 09/01/21 22:08 Respiratory Rate 19 09/01/21 22:08 Blood Pressure 116/80 09/01/21 22:08 Pulse Oximetry 100 09/01/21 22:08 Temperature 97.8 F 09/01/21 22:08 Pulse Rate 86 09/01/21 23:09 Respiratory Rate 20 09/01/21 23:00 Blood Pressure 110/81 09/01/21 22:46 Pulse Oximetry 100 09/01/21 22:46 MDM - SOB/Dyspnea Lab Data Result diagrams: 09/01/21 22:29 09/01/21 22:29 Labs: Lab Results 09/01/21 09/01/21 09/01/21 Range/Units 22:29 22:29 22:29 WBC 6.1 (4.5-10.0) K/mm3 RBC 3.39 L (4.2-5.4) M/mm3 Hgb 11.6 L (12.0-15.0) g/dL Hct 34.7 L (37.0-47.0) % MCV 102.4 H (80-100) fl MCH 34.2 H (26-34) pg MCHC 33.4 (32-36) g/dl RDW 15.2 H (11.5-14.5) % Plt Count 224 (150-375) k/mm3 MPV 8.6 (7.4-10.4) fl Immature Gran % (Auto) 0.3 (0-0.5) % Neut % (Auto) 22.0 L (45.5-73.1) % Lymph % (Auto) 66.7 H (18.3-44.2) % [place] % (Auto) 9.7 H (2.6-8.5) % Eos % (Auto) 1.0 (0-4.4) % Baso % (Auto) 0.3 (0.2-1.2) % Lymph # (Auto) 4.05 H (0.9-3.2) K/mm3 [place] # (Auto) 0.6 (0.1-0.6) K/mm3 Eos # (Auto) 0.1 (0-0.3) K/mm3 Baso # (Auto) 0.0 (0.0-0.1) K/mm3 Abs Immat Gran (auto) 0.02 (0.00-0.031) K/mm3 Absolu
--- NOTE | 2021-09-02 00:50 | PC.NURSE ---
Pt ambulatory 80' to bathroom and 80' back to room on pulse oximeter ranging from 96% to 93% on room air. Pt has quick steady gait to and back from rest room. Pt requesting something hot to drink.
[2021-09-02] MEDS: predniSONE 20 MG TABLET 60 MG PO (01:09)
== END 2021-09-02 01:27 | disposition home or self-care (01) ==
PROVIDERS: Emergency Provider Emergency Medicine; PCP Emergency Medicine
DX: J44.1 Chronic obstructive pulmonary disease with (acute) exacerbation (principal); F17.210 Nicotine dependence, cigarettes, uncomplicated
CPT/HCPCS: 36415; 71046; 80048; 83605; 85025; 93005; 99284; J7512